=== PATIENT | male | born 1945 | race Caucasian/White ===

== ENCOUNTER 2021-07-16 13:55 | Emergency (ER) | payer MEDICARE, OTHER, SELFPAY ==
[2021-07-16 14:06] VITALS: BP 160/87; PULSE 68; RESP 16; TEMP 36.2; O2SAT 99
[2021-07-16 14:13] VITALS: BP 160/87; PULSE 68; RESP 16; TEMP 36.2; O2SAT 99
--- NOTE | 2021-07-16 14:16 | ED.URI ---
HPI - URI/Sore Throat General Chief Complaint: Upper Respiratory Infection Stated Complaint: cough,sore throat Time Seen by Provider: 07/16/21 13:57 Source: patient Mode of arrival: ambulatory Limitations: no limitations History of Present Illness HPI Narrative: 76-year-old male presents to [facility] with complaints of sore throat, swollen glands, itchy throat, cough, congestion and postnasal drip since last night. Patient's is currently ill with similar symptoms. Patient has been taking [id number] ibuprofen with minimal relief. Patient denies chest pain, shortness of breath, ear pain, runny nose, fever, body aches or chills. Patient is a neck smoker. Patient denies recent travel. MD elicited complaint: cough and sore throat Onset (ago): day(s) (1) Able to tolerate fluids by mouth: No Context: sick contacts Treatments prior to arrival: ibuprofen Related Data Home Medications Medication Instructions Recorded Confirmed atorvastatin 20 mg tablet tablet 07/16/21 escitalopram oxalate 20 mg tablet tablet 07/16/21 lorazepam 1 mg tablet tablet 07/16/21 metoprolol succinate 25 mg tablet PO 07/16/21 tablet,extended release 24 hr timolol maleate 0.5 % eye drops drp 07/16/21 Allergies Allergy/AdvReac Type Severity Reaction Status Date / Time No Known Allergies Allergy Verified 07/16/21 14:12 Review of Systems Constitutional: Constitutional: Denies chills, Denies fatigue, Denies fever(s) and Denies weakness ENT: Reports nasal congestion and Reports sore throat Comments: Itchy throat, postnasal drip, swollen glands Cardiovascular: Cardiovascular: Denies chest pain, Denies rapid heart rate, Denies radiating jaw, neck or arm pain and Denies slow heart rate Respiratory: Respiratory: Denies chest congestion, Reports cough, Denies dyspnea and Denies wheezing Gastrointestinal: Gastrointestinal: Denies abdominal pain, Denies bloating, Denies constipation and Denies heartburn Musculoskeletal: Musculoskeletal: Denies myalgias Integumentary/Breasts: Skin/Breast: Denies rash Endocrine: Endocrine: Denies fatigue Course Course Level of Care: Express Care Visit Vital Signs Vital signs: Vital Signs Temperature 36.2 C L 07/16/21 14:06 Pulse Rate 68 07/16/21 14:06 Respiratory Rate 16 07/16/21 14:06 Blood Pressure 160/87 H 07/16/21 14:06 Pulse Oximetry 99 07/16/21 14:06 Oxygen Delivery Room Air 07/16/21 14:06 Temperature 36.2 C L 07/16/21 14:13 Pulse Rate 68 07/16/21 14:13 Respiratory Rate 16 07/16/21 14:13 Blood Pressure 160/87 H 07/16/21 14:13 Pulse Oximetry 99 07/16/21 14:13 Oxygen Delivery Room Air 07/16/21 14:13 MDM - URI/Sore Throat MDM Narrative Medical decision making narrative: Inform patient take medications as prescribed. Patient agrees to follow-up with primary care provider to have blood pressure evaluated. Patient agrees to proceed to the emergency room if symptoms worsen Differential Diagnosis Differential diagnosis: Likely otitis media, sinusitis and bronchitis Lab Data Labs: Negative rapid strep and negative influenza Discharge Plan Discharge Clinical Impression: Upper respiratory infection Patient Disposition: Home, Self-Care Condition: Stable Instructions: Upper Respiratory Infection (ED) Additional Instructions: Rest Increase fluids Take Claritin daily Warm salt water gargles as needed for throat pain Take Tessalon as needed for cough Alternate Motrin and Tylenol as needed Follow-up with primary care provider to have blood pressure evaluated Proceed to the emergency room if symptoms worsen Patient Language: Slovak Prescriptions: New loratadine [Claritin] 10 mg tablet 10 mg PO DAILY Qty: 30 0RF benzonatate 100 mg capsule 100 mg PO TID PRN (Reason: cough) Qty: 14 0RF No Action atorvastatin 20 mg tablet metoprolol succinate 25 mg tablet extended release 24 hr PO lorazepam 1
== END 2021-07-16 14:46 | disposition home or self-care (01) ==
PROVIDERS: Emergency Provider Nurse Practitioner Family
DX: J06.9 Acute upper respiratory infection, unspecified (principal)
CPT/HCPCS: 87081; 87804; 87880; 99213; G0463